=== PATIENT | female | born 1945 | race Caucasian/White ===

== ENCOUNTER 2020-07-02 11:59 | Inpatient (IN) | payer OTHER ==
[~2020-07-02] VITALS: Ht 165.1 cm; Wt 52.7 kg
--- NOTE | 2020-07-02 12:08 | NUR ---
DR CONKLIN AT BEDSIDE FOR EVAL.
--- NOTE | 2020-07-02 12:24 | NUR ---
RADIOLOGY AT BEDSIDE FOR CHEST XRAY.
--- NOTE | 2020-07-02 12:25 | NUR ---
SUIT MAKER AT BEDSIDE FOR BLOOD DRAW.
[2020-07-02] MEDS ORDERED: IV NS 0.9% 1,000 ML BAG IV ONE ×2 (12:30→13:30)
[2020-07-02 12:32] LABS: BASOPHILS % (AUTO) 0.1 % (0.0-2.0); HEMATOCRIT 50 % (33-45); HEMOGLOBIN 16.7 g/dL (11.5-14.8); LYMPHOCYTES % (AUTO) 5.8 % (20.0-44.0); MEAN CORPUSCULAR HGB CONC 33 g/dl (31.0-36.0); MEAN CORPUSCULAR VOLUME 103 fL (82-100); MONOCYTES % (AUTO) 8.1 % (2.0-12.0); PLATELET COUNT (AUTO) 238 /CMM (150-450); RED BLOOD CELL COUNT(AUTO) 4.87 MIL/uL (4.0-5.2); WHITE BLOOD COUNT (AUTO) 15.3 K/uL (4.3-11.0)
[2020-07-02 12:33] LABS: LYMPHOCYTES # (AUTO) 0.9 /CMM (0.8-4.8); MONOCYTES # (AUTO) 1.2 /CMM (0.1-1.30); NEUTROPHILS # (AUTO) 13.1 /CMM (1.8-8.9)
[2020-07-02 12:43] LABS: BILIRUBIN,URINE LARGE (NEGATIVE); COLOR,URINE DARK YELLOW (YELLOW); LEUKOCYTE ESTERASE ,URINE Trace (NEGATIVE); NITRITE, URINE Negative (NEGATIVE); PH,URINE 6.5 (5.0-8.0); PROTEIN,URINE 100 mg/dl (NEGATIVE); UGLUCOSE Negative (NEGATIVE)
[2020-07-02 12:47] LABS: ALANINE AMINOTRANSFERASE 34 U/L (12-78); ALBUMIN 3.7 g/dL (3.4-5.0); ALKALINE PHOSPHATASE 91 U/L (46-116); ASPARTATE AMINOTRANSFERASE 21 U/L (15-37); BILIRUBIN,DIRECT 0.1 mg/dL (0.0-0.2); BILIRUBIN,TOTAL 0.7 mg/dL (0.2-1.0); CALCIUM, SERUM 10.4 mg/dL (8.5-10.1); CARBON DIOXIDE 21 mmol/L (21-32); CHLORIDE 100 mmol/L (98-107); CREATININE 0.8 mg/dL (0.6-1.3); GLUCOSE 179 mg/dL (74-106); SODIUM SERUM 139 mmol/L (136-145); UREA NITROGEN, BLOOD 40 mg/dL (7-18)
[2020-07-02 12:50] LABS: POTASSIUM 2.6 mmol/L (3.5-5.1)
[2020-07-02 12:54] LABS: RBC,URINE 0-2 /HPF (0-2)
[2020-07-02 12:55] LABS: BACTERIA,URINE Few /HPF (None Seen)
[2020-07-02 12:56] LABS: SQUAMOUS EPITHELIAL CELL,UR Many /HPF (None Seen)
--- NOTE | 2020-07-02 13:10 | NUR ---
[facility] CALLED ADMINISTRATIVE APPEALS TRIBUNAL MEMBER PAGED.
[2020-07-02] MEDS ORDERED: CEFTRIAXONE 1GM BAG (ER ONLY) 50 ML IV ONE ×2 (13:13→13:30)
[2020-07-02] MEDS ORDERED: POTASSIUM CL. PREMIX PERIPHER. 200 ML ONE (13:14)
[2020-07-02] MEDS: POTASSIUM CL. PREMIX PERIPHER. 50 ML IV SCH ×5 (13:30→17:04)
--- NOTE | 2020-07-02 13:39 | NUR ---
PT TO RADIOLOGY FOR HEAD CT SCAN VIA [facility].
--- NOTE | 2020-07-02 13:50 | NUR ---
PT RETURNED FROM CT SCAN. VITALS STABLE AND UPDATED.
[2020-07-02] MEDS ORDERED: HYDROCODONE/APAP 5/325MG TABLET PO PRN (14:30)
[2020-07-02] MEDS ORDERED: Z GUARD REMEDY 2 OZ OINT TP PRN (14:30)
[2020-07-02] MEDS ORDERED: MAGNESIUM HYDROXIDE 30 ML UDC PO PRN (14:30)
[2020-07-02] MEDS ORDERED: POTASSIUM CHLORIDE 20 MEQ TAB.PRT.SR PO ONE (14:30)
[2020-07-02] MEDS ORDERED: MAG HYDROX/AL HYDROX/SIMETH 30 ML UDC PO PRN (14:30)
[2020-07-02] MEDS ORDERED: ACETAMINOPHEN 325 MG TABLET PO PRN (14:30)
--- NOTE | 2020-07-02 14:37 | NUR ---
BED 309-1 ASSIGNED
--- NOTE | 2020-07-02 14:57 | NUR ---
REPORT GIVEN TO PARESH ALLEN. AWAITING TRANSFER TO FLOOR.
--- NOTE | 2020-07-02 15:00 | NUR ---
ORDER DESK CALLER ADMITTING NOTES RECEIVED NEW ADMISSION. PATIENT MEDICALLY STABLE AT THIS TIME. A/O X1, MINIMALLY VERBAL, FLAT AFFECT, WITHDRAWN. VITAL SIGNS STABLE. IV ACCESS ON LAC G # 20 INFUSING NS @ 100 MLS/HR AND R HAND G # 20; SL. SAFETY PRECAUTIONS IN PLACE; BED IN LOW POSITION AND LOCKED, RAILS UP X2, CALL LIGHT WITHIN REACH. WILL CONTINUE TO MONITOR PATIENT.
[2020-07-02] MEDS: IV NS 0.9% 1,000 ML IV PRN (15:54)
[2020-07-02] MEDS: ENOXAPARIN SODIUM 40 MG/0.4 ML DISP.SYRIN SQ SCH (17:01)
--- NOTE | 2020-07-02 18:54 | NUR ---
FIELD COURT RESEARCHER CLOSING NOTES PATIENT REMAINS IN BED, AWAKE, A/O X1. PATIENT ON ROOM AIR; BREATHING IS EVEN AND UNLABORED; NO SOB PRESENT AT THIS TIME. NO COMPLAINS OF PAIN. TELE MONITOR WITH A CURRENT READING OF SR 99 BPM. LAC IV ACCESS G # 20 PRESENT AND INTACT INFUSING NS @100 MLS/HR AND R HAND G #20 SL. SAFETY PRECAUTIONS IN PLACE; BED IN LOW POSITION AND LOCKED, RAILS UP X2, CALL LIGHT WITHIN REACH. WILL ENDORSE TO TECHNICAL LEAD NURSE.
--- NOTE | 2020-07-02 19:49 | NUR ---
CHECKER OPENING NOTE PATIENT A/O X1; WITH CONFUSION. ON ROOM AIR, TOLERATING WELL WITH NO SOB. EXTERNAL ALARM INSTALLER READS NSR AT 80'S. LAC #20G NS @ 100ML/HR. R HAND #20G S/L PATENT AND INTACT. PATIENT DENIES PAIN. SAFETY MEASURES IN PLACE : SIDE RAILS UPX2, CALL LIGHT WITHIN EASY REACH, BED TO LOWEST LOCKED POSITION, BED ALARMS ON. PATIENT IN NO DISTRESS AT THIS TIME, WILL CONTINUE PLAN OF CARE.
[2020-07-02 20:00] VITALS: BP 115/73
[2020-07-03] VITALS: BP_SYST 115; BP_SYST 129; BP_DIAS 73; BP_DIAS 79
[2020-07-03 04:00] VITALS: BP 131/74
[2020-07-03] MEDS: IV NS 0.9% 1,000 ML IV PRN (04:48)
--- NOTE | 2020-07-03 06:04 | NUR ---
MORTGAGE PROCESSOR CLOSING NOTE PATIENT A/O X1; WITH CONFUSION. ON ROOM AIR, TOLERATING WELL WITH NO SOB. EXTERNAL SHOE STITCHER READS NSR AT 60'S. LAC #20G NS @ 100ML/HR. R HAND #20G S/L PATENT AND INTACT. PATIENT DENIES PAIN. SAFETY MEASURES IN PLACE : SIDE RAILS UPX2, CALL LIGHT WITHIN EASY REACH, BED TO LOWEST LOCKED POSITION, BED ALARMS ON. PATIENT IN NO DISTRESS AT THIS TIME, WILL ENDORSE PLAN OF CARE TO ONCOMING MORNING RN.
[2020-07-03 06:15] LABS: HEMATOCRIT 37 % (33-45); HEMOGLOBIN 12.6 g/dL (11.5-14.8); LYMPHOCYTES # (AUTO) 1.1 /CMM (0.8-4.8); LYMPHOCYTES % (AUTO) 12.6 % (20.0-44.0); MEAN CORPUSCULAR HGB CONC 34 g/dl (31.0-36.0); MEAN CORPUSCULAR VOLUME 103 fL (82-100); MONOCYTES # (AUTO) 0.8 /CMM (0.1-1.30); NEUTROPHILS # (AUTO) 6.6 /CMM (1.8-8.9); NEUTROPHILS % (AUTO) 77.4 % (43.0-81.0); PLATELET COUNT (AUTO) 176 /CMM (150-450); WHITE BLOOD COUNT (AUTO) 8.5 K/uL (4.3-11.0)
--- NOTE | 2020-07-03 07:06 | NUR ---
SPECIAL EDUCATION ASSISTANT OPENING NOTES RECEIVED PT AWAKE IN BED AT THIS TIME. AOX1-2. PT ABLE RESPOND TO SIMPLE COMMANDS. NO SOB NOTED, NO C//O OF PAIN AT THIS TIME, NO S/O ANY ACUTE DISTRESS NOTED. RESPIRATIONS EVEN AND UNLABORED, STABLE ON RA. PT NOTED WITH EXTERNAL FRENCH POLISHER READING SR IN THE 80S. IV ACCESS NOTED IN LAC G#20 AN RIGHT HAND G#20, BOTH INTACT, PATENT AND FLUSHING WELL. ASPIRATION AND SAFETY PRECAUTIONS IN PLACE AND MAINTAINED AT ALL TIMES. BED IN LOWEST LOCKED POSITION, SIDE RAILS UPX2, TABLE AND CALL LIGHT WITHIN REACH. WILL CONTINUE WITH PLAN OF CARE
[2020-07-03 07:14] LABS: CALCIUM, SERUM 8.5 mg/dL (8.5-10.1); CARBON DIOXIDE 22 mmol/L (21-32); CHLORIDE 113 mmol/L (98-107); CREATININE 0.5 mg/dL (0.6-1.3); GLUCOSE 114 mg/dL (74-106); PHOSPHORUS 2.6 mg/dL (2.5-4.9); POTASSIUM 2.9 mmol/L (3.5-5.1); SODIUM SERUM 148 mmol/L (136-145); UREA NITROGEN, BLOOD 28 mg/dL (7-18)
[2020-07-03 08:00] VITALS: BP 138/71
[2020-07-03] MEDS ORDERED: POTASSIUM CHLORIDE 20 MEQ TAB.PRT.SR PO ONE (09:00)
[2020-07-03] MEDS: POTASSIUM CL. PREMIX PERIPHER. 50 ML IV SCH ×4 (09:22→12:45)
[2020-07-03] MEDS: IV 1/2NS 1000 ML 1,000 ML IV PRN ×2 (09:29→19:18)
[2020-07-03 15:56] VITALS: BP 123/79
[2020-07-03 17:04] LABS: CALCIUM, SERUM 8.5 mg/dL (8.5-10.1); CARBON DIOXIDE 20 mmol/L (21-32); CHLORIDE 115 mmol/L (98-107); CREATININE 0.5 mg/dL (0.6-1.3); GLUCOSE 106 mg/dL (74-106); POTASSIUM 4.9 mmol/L (3.5-5.1); SODIUM SERUM 146 mmol/L (136-145); UREA NITROGEN, BLOOD 24 mg/dL (7-18)
--- NOTE | 2020-07-03 18:58 | NUR ---
RN CLOSING NOTES PT AWAKE IN BED AT THIS TIME. PT REMAINED STABLE THROUGHOUT SHIFT. ALL NEEDS, MEDICATIONS, AND CARE ADMINISTERED ANTICIPATED PER ORDER. PT REPOSITIONED Q2HR AND PRN. POTASSIUM REPLACED. PT KEPT CLEAN AND DRY. SAFETY PRECAUTIONS IN PLACE AND MAINTAINED AT ALL TIMES. BED IN LOWEST LOCKED POSITION, HOB ELEVATED, SIDE RAILS UP X 2. CALL LIGHT AND TABLE WITHIN REACH. WILL ENDORSE TO DIGITAL MARKETING COORDINATOR NURSE FOR SOY
--- NOTE | 2020-07-03 19:10 | NUR ---
MS RN OPENING NOTES: RECEIVED PATIENT IN BED, AWAKE, A/O X2. NO S/S OF DISTRESS NOTED. CALL LIGHT WITHIN REACH. BED IN LOWEST AND LOCKED POSITION. BED ALARM ON. HOB ELEVATED AT 35 DEGREES.
[2020-07-03 20:00] VITALS: BP 142/63
[2020-07-03] MEDS: ENOXAPARIN SODIUM 40 MG/0.4 ML DISP.SYRIN SQ SCH (22:23)
[2020-07-04] MEDS: IV 1/2NS 1000 ML 1,000 ML IV PRN ×2 (06:15→17:11)
[2020-07-04 06:17] LABS: BASOPHILS % (AUTO) 0.1 % (0.0-2.0); EOSINOPHILS % (AUTO) 0.3 % (0.0-6.0); HEMATOCRIT 37 % (33-45); HEMOGLOBIN 12.6 g/dL (11.5-14.8); LYMPHOCYTES # (AUTO) 1.3 /CMM (0.8-4.8); LYMPHOCYTES % (AUTO) 19.3 % (20.0-44.0); MEAN CORPUSCULAR HGB CONC 34 g/dl (31.0-36.0); MEAN CORPUSCULAR VOLUME 103 fL (82-100); MONOCYTES # (AUTO) 0.6 /CMM (0.1-1.30); MONOCYTES % (AUTO) 9.2 % (2.0-12.0); NEUTROPHILS # (AUTO) 4.8 /CMM (1.8-8.9); NEUTROPHILS % (AUTO) 71.1 % (43.0-81.0); PLATELET COUNT (AUTO) 160 /CMM (150-450); RED BLOOD CELL COUNT(AUTO) 3.62 MIL/uL (4.0-5.2); WHITE BLOOD COUNT (AUTO) 6.8 K/uL (4.3-11.0)
[2020-07-04 06:24] LABS: CALCIUM, SERUM 8.5 mg/dL (8.5-10.1); CARBON DIOXIDE 23 mmol/L (21-32); CHLORIDE 108 mmol/L (98-107); CREATININE 0.5 mg/dL (0.6-1.3); GLUCOSE 113 mg/dL (74-106); MAGNESIUM 1.8 mg/dL (1.8-2.4); PHOSPHORUS 2.3 mg/dL (2.5-4.9); POTASSIUM 3.8 mmol/L (3.5-5.1); SODIUM SERUM 142 mmol/L (136-145); UREA NITROGEN, BLOOD 13 mg/dL (7-18)
[2020-07-04 08:00] VITALS: BP 144/93
--- NOTE | 2020-07-04 09:30 | NUR ---
wide awake, needs to be fed, very disoriented, unable to follow basic commands. " I am in the hospital, ", did not know why, did not know the hospital's name, just staring at the interlocutor. BUN/CR trending down today, and PO4 low, no new orders when seen by attending.
--- NOTE | 2020-07-04 15:00 | NUR ---
MS RN NOTE RECEIVED REPORT FROM ALEJANDRO VICENTE. TAKING OVER PATIENT'S CARE.
[2020-07-04 16:00] VITALS: BP 129/74
[2020-07-04] MEDS ORDERED: K PHOS NEUTRAL 250 MG TABLET PO ONE (16:00)
--- NOTE | 2020-07-04 18:54 | NUR ---
MS RN CLOSING NOTE PATIENT CURRENTLY LYING IN BED, AWAKE, EYES OPEN. A/O X1 - RESPONDS TO HER NAME. ABLE TO FOLLOW SOME COMMANDS. ON ROOM AIR - TOLERATING WELL. NO SOB NOTED. NO RESPIRATORY DISTRESS NOTED. NO PAIN NOTED. IV ACCESS TO LEFT AC #20 - RUNNING 1/2 NS @ 100ML/HR. IV ACCESS TO RIGHT HAND #20 - S/L. PATIENT WAS GIVEN PHOSPORUS TAB PO BUT COULD ONLY SWALLOW ONE. SWALLOW EVAL ORDERED AND PENDING. PATIENT HAD BM OF BROWN DIARRHEA. HAS BEEN STABLE THROUGHOUT THE SHIFT. SAFETY PRECAUTIONS IN PLACE. CALL LIGHT WITHIN REACH. WILL ENDORSE TO WOOD WEB WEAVING MACHINE OPERATOR NURSE FOR SOY.
--- NOTE | 2020-07-04 19:14 | NUR ---
MS RN OPENING PATIENT IN BED. CURRENTLY AWAKE AND ALERT. NO S/S OF DISTRESS AND NOT EXHIBITING ANY SIGNS OF PAIN VIA FLACC. SEEMS PLEASANT. RUNNING NS @100 ML/HR. SAFETY KEPT IN PLACE: BED IN LOWEST, LOCKED POSITION; CALL LIGHT WITHIN REACH. WILL CONTINUE TO MONITOR.
[2020-07-04 19:50] VITALS: BP 140/79
[2020-07-04 20:29] VITALS: BP 140/79
[2020-07-04] MEDS: ENOXAPARIN SODIUM 40 MG/0.4 ML DISP.SYRIN SQ SCH (21:29)
[2020-07-05] MEDS: ONDANSETRON HCL/PF 4 MG/2 ML VIAL IVP PRN ×2 (03:23→21:28)
--- NOTE | 2020-07-05 03:25 | NUR ---
MS RN NOTES PATIENT SEEMS RESTLESS AND IN DISTRESS WHEN I CHECKED ON HER. PATIENT SAID SHE IS NOT FEELING WELL. ASKED I SHE'S FEELING NAUSEAS OR IN PAIN. SHE REPORTS OF BEING NAUSEA AND PAIN ON HER THIGH 08/14. GIVEN ZOFRAN AND NORCO PRN. SWALLOWED FINE. WILL REASSESS.
--- NOTE | 2020-07-05 04:30 | NUR ---
MS RN NOTES PATIENT REPORTS UNRELIEVED NAUSEA. PAIN WENT DOWN FROM 5. PATIENT REPORTS SEEING BIRD. I ASKED HER IF SHE HAS A PET BIRD AT HOME SHE SAID YES AND THE BIRD IS HERE WITH HER. WILL CONTINUE TO MONITOR.
[2020-07-05] MEDS: IV 1/2NS 1000 ML 1,000 ML IV PRN (06:16)
[2020-07-05 06:20] LABS: CALCIUM, SERUM 8.7 mg/dL (8.5-10.1); CARBON DIOXIDE 26 mmol/L (21-32); CHLORIDE 103 mmol/L (98-107); CREATININE 0.4 mg/dL (0.6-1.3); GLUCOSE 98 mg/dL (74-106); PHOSPHORUS 3.3 mg/dL (2.5-4.9); POTASSIUM 3.4 mmol/L (3.5-5.1); SODIUM SERUM 138 mmol/L (136-145); UREA NITROGEN, BLOOD 9 mg/dL (7-18)
--- NOTE | 2020-07-05 06:49 | NUR ---
MS RN CLOSING NOTES PATIENT IN BED. ALERT AND ORIENTED TO NAME, BUT NOT TO PLACE. NAUSEA AND PAIN MANAGED WITH MEDICATIONS. ALL SCHED MEDS ADMINISTERED. IV R. HAND RUNNING 1/2 NS @100MLS/HR. NOT EXHIBITING DISTRESS. PATIENT HAD 1 BM LAST NIGHT. SAFETY KEPT IN PLACE THE WHOLE SHIFT: BED IN LOWEST, LOCKED POSITION. CALL LIGHT WITHIN REACH. ALL NEEDS ATTENDED. WILL ENDORSE CARE TO MORNING SHIFT RN.
--- NOTE | 2020-07-05 07:13 | NUR ---
MS RN OPENING NOTES RECEIVED PT RESTING IN BED AT THIS TIME. A/O X1. PATIENT IS BREATHING EVENLY AND NONLABORED ON ROOM AIR. NO SOB NOTED, NO C//O OF PAIN AT THIS TIME, NO S/O ANY ACUTE DISTRESS NOTED. IV ACCESS NOTED IN R HAND # 20 GAUGE RUNNING 1/2 NS @ 100ML/HR, PATENT AND INTACT. ASPIRATION AND SAFETY PRECAUTIONS IN PLACE AND MAINTAINED AT ALL TIMES. BED IN LOWEST LOCKED POSITION, SIDE RAILS UPX2, TABLE AND CALL LIGHT WITHIN REACH. WILL CONTINUE TO MONITOR.
[2020-07-05 08:00] VITALS: BP 112/67
[2020-07-05] MEDS ORDERED: POTASSIUM CHLORIDE 20 MEQ POWDER PACKET PO SCH (11:00)
[2020-07-05 16:00] VITALS: BP 114/74
--- NOTE | 2020-07-05 18:37 | NUR ---
MS RN CLOSING NOTES PT RESTING IN BED AT THIS TIME. A/O X2 . PATIENT IS BREATHING EVENLY AND NONLABORED ON ROOM AIR. NO SOB NOTED, NO C/O OF PAIN AT THIS TIME, NO S/O ANY ACUTE DISTRESS NOTED. IV ACCESS NOTED IN R HAND # 20 GAUGE PATENT AND INTACT. ALL MEDICATIONS GIVEN ORDERED. ASPIRATION AND SAFETY PRECAUTIONS IN PLACE AND MAINTAINED AT ALL TIMES. BED IN LOWEST LOCKED POSITION, SIDE RAILS UPX2, TABLE AND CALL LIGHT WITHIN REACH. WILL ENDORSE TO ONCOMING SHIFT
--- NOTE | 2020-07-05 19:34 | NUR ---
MS RN OPENING NOTE PATIENT IN BED, RESTING. PATIENT IS A/O X2-3. PATIENT TOLERATING ROOM AIR WELL, NO SOB OR DISTRESS. DENIES PAIN OR DISCOMFORT AT THIS TIME. SKIN INTACT KEPT CLEAN AND DRY. IV ACCESS NOTED ON R HAND #22 GAUGE, PATENT AND INTACT. FALL AND SAFETY MEASURES IN PLACE: BED ALARM ON, BED LOWEST LOCKED POSITION, CALL LIGHT WITHIN REACH, SIDE RAILS UPX2. PATIENT IN STABLE CONDITION; WILL CONTINUE PLAN OF CARE.
[2020-07-05 20:00] VITALS: BP 102/69
[2020-07-05] MEDS: ENOXAPARIN SODIUM 40 MG/0.4 ML DISP.SYRIN SQ SCH (21:28)
--- NOTE | 2020-07-05 21:28 | NUR ---
MS RN NOTE - NAUSEA PATIENT C/O NAUSEA NO EMESIS. ADMINISTERED ZOFRAN ORDERED. WILL CONTINUE TO REASSESS FOR N/V WITHIN 30 MINUTES.
[2020-07-06 06:02] LABS: CALCIUM, SERUM 8.7 mg/dL (8.5-10.1); CARBON DIOXIDE 26 mmol/L (21-32); CHLORIDE 105 mmol/L (98-107); CREATININE 0.4 mg/dL (0.6-1.3); GLUCOSE 113 mg/dL (74-106); POTASSIUM 3.2 mmol/L (3.5-5.1); SODIUM SERUM 139 mmol/L (136-145); UREA NITROGEN, BLOOD 12 mg/dL (7-18)
--- NOTE | 2020-07-06 06:17 | NUR ---
MS RN OPENING NOTE PATIENT IN BED, RESTING. PATIENT IS A/O X2-3. PATIENT TOLERATING ROOM AIR WELL, NO SOB OR DISTRESS. DENIES PAIN OR DISCOMFORT AT THIS TIME. SKIN INTACT KEPT CLEAN AND DRY. IV ACCESS NOTED ON R HAND #22 GAUGE S/L, PATENT AND INTACT. FALL AND SAFETY MEASURES IN PLACE: BED ALARM ON, BED LOWEST LOCKED POSITION, CALL LIGHT WITHIN REACH, SIDE RAILS UPX2. PATIENT IN STABLE CONDITION; WILL ENDORSE PLAN OF CARE TO ONCOMING MORNING RN.
--- NOTE | 2020-07-06 07:32 | NUR ---
MS RN OPENING NOTES PATIENT SLEEPING IN BED.ALERT AND ORIENTED X 2-3. BREATHING IS EVEN AND UNLABORED, NO SIGNS OF RESPIRATORY DISTRESS NOTED. NO COMPLAINTS OF PAIN AT THIS TIME. IV ACCESS INTACT FLUSHING WELL, L WRIST#20. SAFETY MEASURES ARE IN PLACE, BED LOCKED AND PLACED IN LOW POSITION, SIDE RAILS UP X 2, CALL LIGHT WITHIN REACH. WILL CONTINUE TO MONITOR THROUGHOUT SHIFT.
[2020-07-06 08:00] VITALS: BP 119/77
[2020-07-06] MEDS ORDERED: POTASSIUM CHLORIDE 20 MEQ POWDER PACKET PO ONE (09:00)
--- NOTE | 2020-07-06 11:39 | NUR ---
SS Consult received for safe discharge planning as pt. lives alone. SW will follow up at a later time.
[2020-07-06 16:00] VITALS: BP 103/70
--- NOTE | 2020-07-06 18:54 | NUR ---
MS RN CLOSING NOTES PATIENT IS AWAKE IN BED .ALERT AND ORIENTED X 2. BREATHING IS EVEN AND UNLABORED, NO SIGNS OF RESPIRATORY DISTRESS NOTED. IV ACCESS R HAND#20, INTACT AND FLUSHING WELL. ALL MEDICATIONS GIVEN ORDERED. SAFETY MEASURES IN PLACE, BED LOCKED AND PLACED IN LOW POSITION, SIDE RAILS UP X 2, CALL LIGHT WITHIN REACH. WILL ENDORSE CONTINUITY OF CARE TO ONCOMING NURSE.
--- NOTE | 2020-07-06 19:10 | NUR ---
MS RN OPENING NOTES: RECEIVED PATIENT IN BED, AWAKE, A/O X2, PATIENT IS ABLE TO RESPOND WHEN ASKED "HOW ARE YOU?", PATIENT REPLIED" I'M OKAY, MY DARLING". NO S/S OF DISTRESS NOTED. CALL LIGHT WITHIN REACH. BED ALARM ON. BED IN LOWEST AND LOCKED POSITION. HEELS OFFLOADED.
[2020-07-06 20:18] VITALS: BP 121/75
[2020-07-06] MEDS: ENOXAPARIN SODIUM 40 MG/0.4 ML DISP.SYRIN SQ SCH (21:20)
--- NOTE | 2020-07-07 07:10 | NUR ---
MS RN OPENING NOTES RECEIVED PATIENT IN BED, ALERT AND ORIENTED X 2. PATIENT WITH EVEN AND UNLABORED BREATHING ON ROOM AIR WITH NO SIGNS OF DISTRESS. PATIENT WITH IV PERIPHERAL LINE ON THE RIGHT HAND G#20, PATENT AND INTACT. NO COMPLAINT OF PAIN OR DISCOMFORT AT THIS TIME. SAFETY MEASURES ENSURED AND COMFORT MEASURES PROVIDED. BED AT LOWEST BED POSITION AND LOCKED FOR SAFETY. CALL LIGHT AND TABLE WITHIN REACH AT ALL TIMES. PROVIDED WITH CALM AND QUIET ENVIRONMENT. WILL CONTINUE TO MONITOR PATIENT.
[2020-07-07 08:00] VITALS: BP 120/80
[2020-07-07] MEDS: ENSURE ENLIVE 237 ML LIQUID (VANILLA) PO SCH ×2 (13:30→17:19)
--- NOTE | 2020-07-07 14:15 | NUR ---
MS RN NOTE PATIENT REFUSED ENSURE. NEW ORDER FROM MD. PATIENT SAID SHE JUST HAD HER LUNCH. HEALHT TEACHING DONE REGARDING IMPORTANCE OF NUTRITIONAL SUPPLEMENTS. VERBALIZED UNDERSTANDING AND APPRECIATION.
--- NOTE | 2020-07-07 15:50 | NUR ---
Wood Fuel Pelletizer consult: creative services designer consult follow up to ensure safe discharge plan for patient who currently lives alone. Patient is a 74-year-old, female. ALEX met with patient at her bedside on the med-surg unit. Patient was alert and oriented x3. Patient was not oriented to situation. Patient was calm and resting. Patient stated that [place] [address] [place] [address]. Patient was unable to recall her phone number. Patient stated that she currently receives SSI. Patient stated that she has access to social support from her friend, Demetrius. SW assessed patient's history of mental illness and patient denied history of mental illness. Patient denied history of substance use. Patient denied suicidal or homicidal ideation. ALEX offered senior resources to the patient. Patient accepted the resources and thanked ALEX. ALEX was notified by social work case manager Matheus that the patient will be discharged to a SNF. PLAN: Patient will be discharged to SNF. ROBERTO Jarvis to continue to follow up with this discharge plan. No further SS intervention at this time, however, ALEX will remain available as needed. Addendum: 07/07/20 at 1600 by ROMY JOHNSON SENIOR RESOURCES: ABUSE PREVENTION: ELDER ABUSE HOTLINE (28/08) ADULT PROTECTIVE SERVICES HOTLINE LONG-TERM CARE [facility] AREA ON AGING (HOTLINE) ADULT DAY HEALTH CARE CARE CENTERS: Private pay or [facility] funded adult day care [facility] Adult Day Health Care [facility] , [facility] Services , [facility] , [facility] Day Health Care , [facility] Day Health Care , [facility] Adult [facility] Center , [place] [facility] , [facility] , Depew ALZHEIMERS DISEASE/DEMENTIA: Alzheimers Association Helpline [facility] www.alz.org/[facility] Department of Aging www.lacity.org Family Caregiver [place] www.caregiver.org [place] Caregiver Resources Center/Family Support www.[facility].org CANCER RESOURCES: [place] Cancer Society www.cancer.org Cancer Support Community www.CancerSupportVvsb.org: CancerCare www.cancercare.org [facility] Cancer Support Center www.[facility] chey[facility].org COMMUNITY HEALTH ASSOCIATIONS: AARP www.aarp.org ALS Association (ask for Tiffany) www.als.org Malaysian Diabetes Association www.diabetes.org Malaysian Heart Association www.heart.org Malaysian Lung Association www.lungusa.org Malaysian Parkinson Disease Association www.apdaparkinson.org Malaysian Hernandez , www.redcross.org Arthritis Foundation www.arthritis.org Crohns & Colitis Foundation of Malaysian www.ccfa.org/chapters/marjangeles National Multiple Sclerosis Society www.nationalmssociety.org Myasthenia Gravis Foundation www.myasthenia-ca.org National Stroke Association www.stroke.org CONSERVATORSHIP & GUARDIANSHIP: AARP Bet Tzedek Legal Services Center for Health Care Rights Eldercare Information and Referral Drug Safety Specialist Foundation [facility]: [facility] Referral Service [facility] Legal Services Office of the Public Guardian [place] EYESIGHT DISORDER RESOURCES: Malaysian Macular Degeneration Foundation [facility] www.[facility].org GRIEF AND BEREAVEMENT RESOURCES: The [place] , [facility] [place] Connection , [facility] Bereavement Center , [place]az HEARING DISORDER RESOURCES: [place] Telephone Access Program Deaf and Disabled Telecommunications Program www.ddtp.cpuc.ca.gov HearRx Hearing Centers ([place]) Better Hearing Systems , [place] GLAD ([facility] Agency on Deafness) V/ TTY; Material Handler 2Nd Shift , [facility] Hearing [facility] -low income hearing aid assistance www.Project Bionichearingfoundation.org [place] [facility] , Aurelio HELP AT HOME CAREGIVER SUPPORT: In Home Support Services (Must have Medi-Margarita to be eligible) *Ask for a list of agencies that provide services to assist with care in the home. Local Senior Centers also have listings of care providers. HOME SAFETY MODIFICATIONS AND EQUIPMENT: Senior centers have additional referrals. [place] Housing and Community Investment Dept. Handyworker Program (low income) or Visit http://hcidla.[facility].org/kie-ukldju-lw for more information National Seating and Mobility and/or ; Forever Active www.foreverHID Globalmed.SalesLoft Stay Home Safe www.Stayhomesafe.com LIFE ALERT RESPONSE SYSTEM: Geminare Services 695-234-9629 www. Profit Software Life Alert 582-252-3418 www.CardioVIP Life Station 147-756-9472 www.Cloveration.SalesLoft Safe Return 851-357-9546 www.alz.or/safereturn Cell Phones for Seniors www.ClearLine Mobile MEALS AND FOOD PROGRAMS: [place] Meals on Wheels [phone] [place] Meals on Wheels [phone] [facility] [phone] [place] to the Homebound [phone] [place] to the Homebound [phone] [facility] to the Homebound [phone] [facility] to the Homebound [phone] [facility] [phone] [facility] [phone] ONE Generation [phone] [facility] [phone] [facility] [phone] Meals on Wheels [phone] For all ages: $6.85/ meal w side. Delivered M-F from 10 am-1pm. Application and payment is done over the phone. Frozen meals available for weekends. Emergency Food [facility] [phone] [facility] Wood Fuel Pelletizer [phone] [facility] [phone] [facility]- Brown bag lunches [phone] [facility] [phone] MEAL/GROCERY DELIVERY PROGRAMS: Greogr [facility] Gourmet Meals [phone]- [facility] [phone]- [facility] Magic Kitchen [phone] Moms Meals [phone] (ask Perez for Discount Select grocery stores may provide delivery. MEDICAL INSURANCE SUPPORT SERVICES: Center for Health Care Rights [phone] Health Insurance Counseling/Advocacy Programs (HICAP)-Must have Medicare. Offers counseling for Medi-Margarita eligibility [phone] Department of Public Wood Fuel Pelletizer 937-563-5482 www.va hospital.ca.gov Medicare 069-762-9140 www.socialsecurity.org Social Security [phone] SENIOR ACTIVITY PROGRAMS: *Contact a local senior center, adult school, recreation facility or community college for education, fitness, recreation, and social programs. Aquatic Therapy and Adapted Exercise programs through [facility] [phone] Encore at [facility] [phone] www.[facility]/encore U- Senior Friends [phone] [place] Senior Programs [phone] www.oasisnet.org Suddenly 65 www.xykfilfx67.com SENIOR CENTERS: [facility] [phone] [facility] [phone] [facility] [phone] [facility] [phone] [facility] [phone] [facility] [phone] [facility] [phone] [facility] [phone] One Generation, [facility] [phone] [facility] [phone] [facility] [phone] [facility] [phone] [facility] [phone] TRANSPORTATION: Local Senior Centers may have applications for transportation programs and additional resources. ACCESS Services [phone] Transportation for seniors and disabled persons 7 days a week requiring 254 hr. advance reservation. Must apply and register for program isaac eligible. [employer] 237-120-5420 or [phone] Transportation for seniors and persons with ADA card/metro disabled card in the [facility]. M-F only. Must register for services. ONE GENERATION [phone] Serves 65 years + in conjunction with [employer] Beijinge program. Must be registered with both programs. A to B Transport [phone] Provides wheelchair/gurney van service. Adult Medical Transport [phone] Accepts Medi-margarita with prior authorization. Care Van [phone] Provides wheelchair Transport. [facility] Wide Transportation [phone] Provides gurney service [facility] [phone] Gurney Transport. [facility] Transportation [phone] wheelchair & gurney transport [facility] Transportation [phone] wheelchair & gurney transport [place] Non-Emergency Transport [phone] wheelchair & gurney transport Independent Living [place] [phone] Short Term Transportation primarily for adults with disabilities on social security income. Nominal fee may apply and a reservation is required. [employer] [phone] or [phone] [facility] [phone] [place] [address] Referral Services [phone] For additional programs & services
--- NOTE | 2020-07-07 16:05 | NUR ---
RN NOTES SPOKE W/ ASHLEY, EXPORT CLERK; PER ASHLEY, PATIENT WILL GO TO [facility] AND REQUESTS FOR RAPID COVID TEST FOR PATIENT.
--- NOTE | 2020-07-07 16:48 | NUR ---
RN NOTES SPOKE W/ HAND LAUNDERER; PER MAGGI RAMIREZ REQUESTING FOR HOSPITAL TO FAX OVER RESULT OF RAPID COVID TEST ONCE AVAILABLE ([phone]), PATIENT WILL GO TO ROOM 215-A.
--- NOTE | 2020-07-07 18:00 | NUR ---
RN NOTES RAPID COVID TEST RESULT NEGATIVE; RESULT FAXED TO [facility]. FACSIMILE CONFIRMATION PLACED IN CHART.
--- NOTE | 2020-07-07 18:00 | NUR ---
MS RN NOTE PATIENT ENDORSED TO ALEJANDRO FIGUEROA AT [facility] FOR TRANSFER TODAY. LATEST COVID RESULT FAXED TO [facility].
--- NOTE | 2020-07-07 19:09 | NUR ---
MS RN CLOSING NOTE PATIENT ON BED ALERT AND ORIENTED X 2 BUT VERY FORGETFUL. PATIENT DENIES ANY PAIN OR DISCOMFORT. WITH NO SIGNS OF DISTRESS THROUGHOUT THE SHIFT. PATIENT FOR TRANSFER TO [facility]. AWAITING PICK-UP AROUND 1929. COMFORT MEASURES PROVIDED. PROVIDED WITH CALM AND QUIET ENVIRONMENT. BED MAINTAINED ON LOWEST POSITION AND LOCKED. CALL LIGHT AND BEDSIDE TABLE WITHIN REACH AT ALL TIMES. WILL ENDORSE TO COMBINATION WELDER APPRENTICE FOR CONTINUITY OF CARE.
--- NOTE | 2020-07-07 19:34 | NUR ---
PATIENT PICKED UP BY BY AMBULANCE ON A GURNEY FOR [facility]SFER TO [facility] ORDERED. iv LINE REMOVED, WITH NO SIGNS AND SYMPTOMS OF BLEEDING. IN STABLE CONDITION.
== END 2020-07-07 19:35 | DRG 682 ==
LOC: ER 12:02 → TELE 14:44 → MED 07-03 11:56
PROVIDERS: ADMIT Internal Medicine; ATTEND Internal Medicine
DX: N17.0 Acute kidney failure with tubular necrosis (principal); G92 Toxic encephalopathy; N39.0 Urinary tract infection, site not specified; E87.0 Hyperosmolality and hypernatremia; E87.2 Acidosis; E87.6 Hypokalemia; E83.42 Hypomagnesemia
CPT/HCPCS: 36415; 70450-TC; 71045-TC; 80048-TC; 80076-TC; 81001; 82962-TC; 83605-TC; 83735-TC; 84100-TC; 84484-TC; 85025-TC; 85730-TC; 87040-TC; 87081-TC; 87086-TC; 92526; 92611-TC; 97110-TC; 97112-TC; 97116-TC; 97530-TC; C9803; G0378; J0696; J1650; J2405; J3480; J3490; J7030